=== PATIENT | female | born 1960 | race Two or more races ===

== ENCOUNTER 2024-06-17 22:00 | Emergency (ER) | payer OTHER ==
[~2024-06-17] VITALS: Ht 162.6 cm; Wt 54.5 kg
[2024-06-17] MEDS: ACETAMINOPHEN 325 MG TAB PO ONE (22:15)
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
[2024-06-17 23:20] VITALS: BP 168/98; TEMP 98.5
--- NOTE | 2024-06-17 23:20 | DVH ---
EXAM: CT CERVICAL WITHOUT CONTRAST INDICATION: [facility] EXAM DATE: 06/17/2024 10:50 PM COMPARISON: None TECHNIQUE: Multiple axial CT images of the cervical spine were obtained using bone algorithm. Axial a nd coronal reformatting was done. Bone and soft tissue windows were reviewed. Radiation Dose Information: CT Dose: CTDI volume is 10.17 mGy. Dose-length product is 261.75 mGy*cm FINDINGS: The cervical alignment is intact. No acute cervical spine fracture is identified. The vertebral body heights are intact. No suspicious osseous lesions are identified. Bridging osteophyte posteriorly at C5-6 creating moderate spinal stenosis. The central canal measure s 7-8 mm front to back. There is straightening of the normal cervical lordotic curve. There is no prevertebral soft tissue swelling. IMPRESSION: 1. No evidence of acute cervical spine fracture or traumatic malalignment. 2. Straightening of the normal cervical lordotic curve. 3. Degenerative disc changes at C5-6 with the bridging posterior osteophyte creating [id number] spinal stenosis of the central canal measuring 7-8 mm front to back. All CT scans at this medical facility are performed using dose modulation techniques as appropriate t o a performed exam including the following: Automated exposure control was utilized; adjustment of th e MA and/or KV according to patient size; and use of iterative reconstruction technique. HS:Y
--- NOTE | 2024-06-17 23:28 | DVH ---
EXAM: CT HEAD WITHOUT CONTRAST INDICATION: [facility] TECHNIQUE: CT of the head without intravenous contrast. Radiation Dose Information: CT Dose: CTDI volume is 55.64 mGy. Dose-length product is 1157.47 mGy*cm The dose indicators for CT are the volume Computed Tomography (CT) Dose Index (CTDIvol) and the Dose Length Product (DLP), and are measured in units of mGy and mGy-cm, respectively. These indicators are not patient dose, but values generated from the CT scanner acquisition factors. The report includes radiation exposure data for exposures received during this examination. COMPARISON: None FINDINGS: There is no evidence of acute intracranial hemorrhage, extra-axial collection, mass effect, midline s hift, herniation or hydrocephalus. The ventricles, sulci and cisterns are age appropriate. The christy-white differentiation is intact. Patchy periventricular and subcortical white matter hypoattenuation is nonspecific but may be related to small vessel ischemic disease. Partially opacified right maxillary sinus and mastoid air cells are clear. The surrounding soft tissues and osseous structures are unremarkable. IMPRESSION: 1. No acute intracranial hemorrhage. 2. No CT findings of displaced skull fracture. 3. Partially opacified right maxillary sinus. HS:Y
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
[2024-06-18 00:15] VITALS: PULSE 80; RESP 13; O2SAT 95
--- NOTE | 2024-06-18 04:04 | ECG ---
[facility] Test Date: 2024-06-17 Test Time: 22:05:51 Pat Name: PRESTON ZAMORA Department: ER Room: Gender: F Proofer Prepress: TRISHA : 1960 Requested By: BECKY POWERS Order Number: [id number] Reading MD: Measurements Intervals [place] Rate: 78 P: 51 MA: 144 QRS: 76 QRSD: 119 T: 68 QT: 419 QTc: 478 Interpretive Statements Sinus rhythm Nonspecific intraventricular conduction delay Nonspecific T abnormalities, anterior leads Please click the below link to view image of tracing.
== END 2024-06-18 00:54 | disposition home or self-care (01) ==
LOC: EDBD 22:00 → ER 22:00
DX: S29.011A Strain of muscle and tendon of front wall of thorax, initial encounter (principal); S16.1XXA Strain of muscle, fascia and tendon at neck level, initial encounter; I10 Essential (primary) hypertension; F17.210 Nicotine dependence, cigarettes, uncomplicated; V43.53XA Car driver injured in collision with pick-up truck in traffic accident, initial encounter; Y93.89 Activity, other specified; Y92.410 Unspecified street and highway as the place of occurrence of the external cause; Y99.8 Other external cause status
CPT/HCPCS: 70450; 71045; 72125; 93005